=== PATIENT | male | born 1970 | race Caucasian/White ===

== ENCOUNTER 2022-02-21 09:01 | Inpatient (IN) | payer MEDICAID, MEDICARE ==
[~2022-02-21] VITALS: Ht 170.2 cm; Wt 83.0 kg
[2022-02-21] MEDS ORDERED: ONDANSETRON HCL 4MG/2ML INJ IV STA (09:14)
[2022-02-21 09:46] LABS: CHLORIDE 100 mEq/L (98-107)
[2022-02-21 09:53] LABS: BASOPHILS % 0.6 % (0.0-2.0); EOSINOPHILS % 0.2 % (0.0-5.0); HEMATOCRIT. 45.8 % (42.0-52.0); HEMOGLOBIN. 15.4 g/dL (14.0-18.0); LYMPHOCYTES % 15.1 % (20.0-50.0); MEAN CORPUSCULAR HEMOGLOBIN 29.4 pg (28.0-32.0); MEAN CORPUSCULAR VOLUME 87.5 fL (80.0-94.0); MEAN PLATELET VOLUME 8.6 fl (7.4-10.4); MONOCYTES % 9.8 % (2.0-8.0); NEUTROPHILS % 74.3 % (40.0-76.0); PLATELET 304 x1000/uL (130-400); RED BLOOD CELL COUNT 5.23 mill/uL (4.7-6.1); RED CELL DISTRIBUTION WIDTH 13.1 % (11.6-14.6)
[2022-02-21 09:57] LABS: CLARITY URINE CLOUDY (CLEAR); COLOR URINE DARK YELLOW (YELLOW); KETONES URINE 4+ (NEGATIVE); LEUKOCYTE ESTERASE URINE TRACE (NEGATIVE); NITRITE URINE NEGATIVE (NEGATIVE); OCCULT BLOOD URINE NEGATIVE (NEGATIVE); PROTEIN URINE 1+ (NEGATIVE); SPECIFIC GRAVITY URINE 1.023 (1.005-1.030); UROBILINOGEN URINE 0.2 E.U./dL (0.2-1.0)
[2022-02-21] MEDS ORDERED: CEFOXITIN SODIUM 2 G in DEXT 5% WATER 100 ML IV STA (10:54)
[2022-02-21] MEDS ORDERED: BUPIVACAINE HCL/PF 0.5% (5MG/ML) 10ML ONE (11:49)
[2022-02-21] MEDS ORDERED: SKIN ADHESIVE 0.7 GM EA TOP ONE (11:49)
[2022-02-21] MEDS ORDERED: PROPOFOL 200MG/20ML VIAL IV ONE (12:26)
[2022-02-21] MEDS ORDERED: MIDAZOLAM HCL 2 MG/2 ML VIAL ONE (12:55)
[2022-02-21] MEDS ORDERED: ROCURONIUM BROMIDE 10MG/ML VIAL 5ML IV ONE (12:56)
[2022-02-21] MEDS ORDERED: FENTANYL CITRATE/PF 50MCG/ML 2ML VIAL ONE (13:07)
[2022-02-21] MEDS ORDERED: CEFAZOLIN SODIUM 1000MG/VIAL ONE (13:08)
[2022-02-21] MEDS ORDERED: DEXAMETHASONE 4MG/ML 1ML VIAL ONE (13:08)
[2022-02-21] MEDS ORDERED: SUCCINYLCHOLINE CHLORIDE 200MG/10ML IV ONE (13:08)
[2022-02-21] MEDS ORDERED: NALOXONE HCL 0.4MG/ML VIAL IV PRN (13:30)
[2022-02-21] MEDS ORDERED: KETOROLAC 30MG/ML VIAL ONE (13:41)
[2022-02-21] MEDS ORDERED: MEPERIDINE HCL/PF 25MG/ML CPJ IV PRN (13:45)
[2022-02-21] MEDS ORDERED: FENTANYL CITRATE/PF 50MCG/ML 2ML VIAL IV PRN (13:45)
[2022-02-21] MEDS ORDERED: ATROPINE SULFATE 0.4MG/ML VIAL IV PRN (13:45)
[2022-02-21] MEDS ORDERED: HYDROMORPHONE HCL/PF 2MG/ML CPJ IV PRN (13:45)
[2022-02-21 13:48] LABS: INR 1.1; PROTHROMBIN TIME 11.6 sec (9.6-11.0)
[2022-02-21] MEDS ORDERED: GLYCOPYRROLATE 0.2MG/ML VIAL 5ML IV PRN (14:30)
[2022-02-21] MEDS ORDERED: METOCLOPRAMIDE HCL 10MG/2ML VIAL IV SCH (14:45)
[2022-02-21 20:00] VITALS: BP 100/66
[2022-02-21 20:14] VITALS: BP 103/55
[2022-02-21] MEDS: MORPHINE SULFATE 4 MG/ML CPJ (NOT FOR IM USE) IV PRN (20:29)
[2022-02-21] MEDS: FAMOTIDINE 20MG/2ML VIAL IV SCH (21:03)
[2022-02-21] MEDS: DEXT 5%/0.45% NACL KCL 20MEQ/L 1,000 ML IV SCH (21:13)
[2022-02-22] VITALS: BP 113/67
[2022-02-22] MEDS: MORPHINE SULFATE 4 MG/ML CPJ (NOT FOR IM USE) IV PRN ×3 (00:41→14:52)
[2022-02-22 04:00] VITALS: BP 101/64
[2022-02-22] MEDS: DEXT 5%/0.45% NACL KCL 20MEQ/L 1,000 ML IV SCH ×2 (06:47→20:01)
[2022-02-22 08:00] VITALS: BP 117/75
[2022-02-22] MEDS: FAMOTIDINE 20MG/2ML VIAL IV SCH ×2 (08:54→20:36)
[2022-02-22 12:00] VITALS: BP 111/68
[2022-02-22] MEDS ORDERED: DEXTROSE 50% WATER 50ML SYRINGE IV PRN (14:00)
[2022-02-22] MEDS ORDERED: POTASSIUM CHLORIDE INJ 40 MEQ in DEXT 5% WATER 250 ML IV ONE (14:00)
[2022-02-22] MEDS ORDERED: KCL 20MEQ/100ML X 2 FOR TOTAL KCL 40MEQ/200ML IV SCH (15:00)
[2022-02-22 16:00] VITALS: BP 106/68
[2022-02-22] MEDS: BLOOD SUGAR DIAGNOSTIC STRIP TEST SCH ×2 (17:20→20:43)
[2022-02-22] MEDS: KCL 20MEQ/100ML X 2 FOR TOTAL KCL 40MEQ/200ML IV SCH ×2 (18:17→21:10)
[2022-02-22] MEDS: INSULIN LISPRO 100 UNITS/ML SUBCUT SCH ×2 (18:30→20:35)
[2022-02-22 20:00] VITALS: BP 123/77
[2022-02-22] MEDS: PIPERACILLIN/TAZOBACTAM 3.375 G in DEXTROSE 5% WATER 50 ML IV SCH (23:35)
[2022-02-23] VITALS: BP 107/72
[2022-02-23 04:00] VITALS: BP 116/78
[2022-02-23] MEDS: MORPHINE SULFATE 4 MG/ML CPJ (NOT FOR IM USE) IV PRN (05:07)
[2022-02-23] MEDS: PIPERACILLIN/TAZOBACTAM 3.375 G in DEXTROSE 5% WATER 50 ML IV SCH ×3 (06:42→22:57)
[2022-02-23] MEDS: DEXT 5%/0.45% NACL KCL 20MEQ/L 1,000 ML IV SCH (06:42)
[2022-02-23] MEDS: BLOOD SUGAR DIAGNOSTIC STRIP TEST SCH ×4 (06:42→21:28)
[2022-02-23 08:00] VITALS: BP 115/79
[2022-02-23 08:29] LABS: BASOPHILS % 0.3 % (0.0-2.0); EOSINOPHILS % 0.4 % (0.0-5.0); HEMATOCRIT. 38.2 % (42.0-52.0); LYMPHOCYTES % 20.4 % (20.0-50.0); MEAN CORPUSCULAR HEMOGLOBIN 29.7 pg (28.0-32.0); MEAN CORPUSCULAR VOLUME 87.5 fL (80.0-94.0); MEAN PLATELET VOLUME 8.6 fl (7.4-10.4); MONOCYTES % 11.1 % (2.0-8.0); NEUTROPHILS % 67.8 % (40.0-76.0); PLATELET 256 x1000/uL (130-400); RED BLOOD CELL COUNT 4.37 mill/uL (4.7-6.1)
[2022-02-23] MEDS: FAMOTIDINE 20MG/2ML VIAL IV SCH ×2 (09:58→21:35)
[2022-02-23] MEDS: MORPHINE SULFATE 2 MG/ML CPJ (NOT FOR IM USE) IV PRN ×4 (09:59→22:56)
[2022-02-23] MEDS: INSULIN LISPRO 100 UNITS/ML SUBCUT SCH ×4 (10:14→21:00)
[2022-02-23 12:00] VITALS: BP 114/78
[2022-02-23 16:00] VITALS: BP 113/81
[2022-02-23 20:00] VITALS: BP 104/61
[2022-02-24] VITALS: BP 98/52
[2022-02-24] MEDS: DEXT 5%/0.45% NACL KCL 20MEQ/L 1,000 ML IV SCH ×2 (02:00→12:06)
[2022-02-24] MEDS: MORPHINE SULFATE 2 MG/ML CPJ (NOT FOR IM USE) IV PRN (03:49)
[2022-02-24 04:00] VITALS: BP 103/55
[2022-02-24] MEDS: PIPERACILLIN/TAZOBACTAM 3.375 G in DEXTROSE 5% WATER 50 ML IV SCH ×3 (05:24→21:57)
[2022-02-24] MEDS: BLOOD SUGAR DIAGNOSTIC STRIP TEST SCH ×4 (07:29→22:19)
[2022-02-24 07:30] LABS: BASOPHILS % 0.6 % (0.0-2.0); EOSINOPHILS % 2.4 % (0.0-5.0); HEMATOCRIT. 38.1 % (42.0-52.0); HEMOGLOBIN. 12.8 g/dL (14.0-18.0); LYMPHOCYTES % 26.5 % (20.0-50.0); MEAN CORPUSCULAR HEMOGLOBIN 29.5 pg (28.0-32.0); MEAN CORPUSCULAR VOLUME 87.9 fL (80.0-94.0); MEAN PLATELET VOLUME 7.9 fl (7.4-10.4); MONOCYTES % 11.1 % (2.0-8.0); NEUTROPHILS % 59.4 % (40.0-76.0); PLATELET 282 x1000/uL (130-400); RED BLOOD CELL COUNT 4.33 mill/uL (4.7-6.1)
[2022-02-24 08:00] VITALS: BP 128/83
[2022-02-24] MEDS: INSULIN LISPRO 100 UNITS/ML SUBCUT SCH ×4 (08:52→22:19)
[2022-02-24] MEDS: FAMOTIDINE 20MG/2ML VIAL IV SCH ×2 (11:50→21:57)
[2022-02-24 12:00] VITALS: BP 113/76
[2022-02-24 16:00] VITALS: BP 110/72
[2022-02-24] MEDS: ACETAMINOPHEN 325MG TABLET PO PRN (18:43)
[2022-02-24 20:00] VITALS: BP 121/72
[2022-02-24 21:09] LABS: CHLORIDE 104 mEq/L (98-107)
[2022-02-25] VITALS: BP 114/78
[2022-02-25] MEDS: DEXT 5%/0.45% NACL KCL 20MEQ/L 1,000 ML IV SCH ×3 (00:58→18:16)
[2022-02-25 04:00] VITALS: BP 119/83
[2022-02-25] MEDS: MORPHINE SULFATE 2 MG/ML CPJ (NOT FOR IM USE) IV PRN (04:17)
[2022-02-25] MEDS: PIPERACILLIN/TAZOBACTAM 3.375 G in DEXTROSE 5% WATER 50 ML IV SCH ×3 (07:01→21:01)
[2022-02-25] MEDS: BLOOD SUGAR DIAGNOSTIC STRIP TEST SCH ×4 (07:03→20:17)
[2022-02-25 08:00] VITALS: BP 119/81
[2022-02-25 08:46] LABS: BASOPHILS % 0.4 % (0.0-2.0); EOSINOPHILS % 3.5 % (0.0-5.0); HEMOGLOBIN. 13.8 g/dL (14.0-18.0); LYMPHOCYTES % 24.3 % (20.0-50.0); MEAN CORPUSCULAR HEMOGLOBIN 29.4 pg (28.0-32.0); MEAN CORPUSCULAR VOLUME 89.2 fL (80.0-94.0); MONOCYTES % 9.8 % (2.0-8.0); PLATELET 324 x1000/uL (130-400); RED CELL DISTRIBUTION WIDTH 12.8 % (11.6-14.6)
[2022-02-25] MEDS: FAMOTIDINE 20MG/2ML VIAL IV SCH ×2 (08:58→20:18)
[2022-02-25] MEDS: INSULIN LISPRO 100 UNITS/ML SUBCUT SCH ×4 (09:12→20:20)
[2022-02-25 12:00] VITALS: BP 126/77
[2022-02-25] MEDS: HYDROCODONE/ACETAMINOPHEN 5/325MG TABLET PO PRN ×2 (12:15→17:42)
[2022-02-25 16:00] VITALS: BP 126/83
[2022-02-25 20:00] VITALS: BP 120/64
[2022-02-25] MEDS: MORPHINE SULFATE 4 MG/ML CPJ (NOT FOR IM USE) IV PRN (20:25)
[2022-02-26 04:00] VITALS: BP 105/65
[2022-02-26] MEDS: BLOOD SUGAR DIAGNOSTIC STRIP TEST SCH ×4 (05:25→21:06)
[2022-02-26] MEDS: DEXT 5%/0.45% NACL KCL 20MEQ/L 1,000 ML IV SCH ×2 (05:25→15:08)
[2022-02-26] MEDS: PIPERACILLIN/TAZOBACTAM 3.375 G in DEXTROSE 5% WATER 50 ML IV SCH ×3 (05:25→21:58)
[2022-02-26] MEDS: MORPHINE SULFATE 4 MG/ML CPJ (NOT FOR IM USE) IV PRN (05:26)
[2022-02-26] MEDS: INSULIN LISPRO 100 UNITS/ML SUBCUT SCH ×4 (07:50→21:00)
[2022-02-26 08:00] VITALS: BP 110/76
[2022-02-26] MEDS: FAMOTIDINE 20MG/2ML VIAL IV SCH ×2 (08:44→20:49)
[2022-02-26 12:00] VITALS: BP 113/78
[2022-02-26] MEDS: HYDROCODONE/ACETAMINOPHEN 5/325MG TABLET PO PRN (14:27)
[2022-02-26 16:00] VITALS: BP 106/76
[2022-02-26 20:00] VITALS: BP 123/74
[2022-02-26] MEDS: MORPHINE SULFATE 2 MG/ML CPJ (NOT FOR IM USE) IV PRN (20:58)
[2022-02-27] VITALS: BP 105/69
[2022-02-27] MEDS: DEXT 5%/0.45% NACL KCL 20MEQ/L 1,000 ML IV SCH ×3 (00:36→21:04)
[2022-02-27 04:00] VITALS: BP 112/76
[2022-02-27] MEDS: PIPERACILLIN/TAZOBACTAM 3.375 G in DEXTROSE 5% WATER 50 ML IV SCH ×2 (06:11→16:27)
[2022-02-27] MEDS: BLOOD SUGAR DIAGNOSTIC STRIP TEST SCH ×4 (06:16→21:27)
[2022-02-27] MEDS: MORPHINE SULFATE 2 MG/ML CPJ (NOT FOR IM USE) IV PRN (06:30)
[2022-02-27] MEDS: INSULIN LISPRO 100 UNITS/ML SUBCUT SCH ×2 (07:50→21:00)
[2022-02-27 08:00] VITALS: BP 112/76
[2022-02-27] MEDS: FAMOTIDINE 20MG/2ML VIAL IV SCH ×2 (10:21→21:27)
[2022-02-27] MEDS: HYDROCODONE/ACETAMINOPHEN 5/325MG TABLET PO PRN ×2 (10:51→21:14)
[2022-02-27 12:00] VITALS: BP 110/76
[2022-02-27 16:00] VITALS: BP 112/76
[2022-02-27 16:43] LABS: BASOPHILS % 0.5 % (0.0-2.0); EOSINOPHILS % 2.2 % (0.0-5.0); HEMATOCRIT. 39.5 % (42.0-52.0); HEMOGLOBIN. 13.3 g/dL (14.0-18.0); LYMPHOCYTES % 28.2 % (20.0-50.0); MEAN CORPUSCULAR HEMOGLOBIN 29.5 pg (28.0-32.0); MEAN CORPUSCULAR VOLUME 87.8 fL (80.0-94.0); MONOCYTES % 11.4 % (2.0-8.0); NEUTROPHILS % 57.7 % (40.0-76.0); PLATELET 349 x1000/uL (130-400)
[2022-02-27 20:00] VITALS: BP 129/75
[2022-02-28] VITALS: BP 113/70
[2022-02-28 04:00] VITALS: BP 116/82
[2022-02-28] MEDS: DEXT 5%/0.45% NACL KCL 20MEQ/L 1,000 ML IV SCH ×2 (06:33→15:50)
[2022-02-28] MEDS: BLOOD SUGAR DIAGNOSTIC STRIP TEST SCH ×4 (07:30→20:15)
[2022-02-28 08:00] VITALS: BP 120/74
[2022-02-28] MEDS: FAMOTIDINE 20MG/2ML VIAL IV SCH ×2 (09:31→19:57)
[2022-02-28] MEDS: INSULIN LISPRO 100 UNITS/ML SUBCUT SCH ×4 (09:43→20:13)
[2022-02-28] MEDS ORDERED: HYDR-4001 MT ×2 (10:17)
[2022-02-28] MEDS ORDERED: LEVO500T90 MT ×2 (10:17)
[2022-02-28] MEDS: HYDROCODONE/ACETAMINOPHEN 5/325MG TABLET PO PRN ×3 (11:00→19:57)
[2022-02-28 12:00] VITALS: BP_SYST 112; BP_SYST 115; BP_DIAS 77; BP_DIAS 79
[2022-02-28 16:00] VITALS: BP 112/77
[2022-02-28 20:00] VITALS: BP 130/83
[2022-03-01] VITALS: BP 107/68
[2022-03-01] MEDS: HYDROCODONE/ACETAMINOPHEN 5/325MG TABLET PO PRN ×5 (00:49→23:15)
[2022-03-01] MEDS: DEXT 5%/0.45% NACL KCL 20MEQ/L 1,000 ML IV SCH ×3 (01:52→20:25)
[2022-03-01 04:00] VITALS: BP 124/64
[2022-03-01] MEDS: BLOOD SUGAR DIAGNOSTIC STRIP TEST SCH ×3 (06:11→20:21)
[2022-03-01 06:41] LABS: BASOPHILS % 0.1 % (0.0-2.0); HEMATOCRIT. 42.8 % (42.0-52.0); HEMOGLOBIN. 14.2 g/dL (14.0-18.0); LYMPHOCYTES % 10.8 % (20.0-50.0); MEAN CORPUSCULAR HEMOGLOBIN 29.6 pg (28.0-32.0); MEAN CORPUSCULAR VOLUME 89.3 fL (80.0-94.0); MEAN PLATELET VOLUME 7.7 fl (7.4-10.4); MONOCYTES % 5.3 % (2.0-8.0); NEUTROPHILS % 83.8 % (40.0-76.0); PLATELET 360 x1000/uL (130-400); RED CELL DISTRIBUTION WIDTH 13.2 % (11.6-14.6)
[2022-03-01 08:00] VITALS: BP 105/66
[2022-03-01] MEDS: FAMOTIDINE 20MG/2ML VIAL IV SCH ×2 (09:00→20:21)
[2022-03-01] MEDS ORDERED: MORPHINE SULFATE 2 MG/ML CPJ (NOT FOR IM USE) IV SCH (11:00)
[2022-03-01 12:00] VITALS: BP 109/67
[2022-03-01] MEDS: INSULIN LISPRO 100 UNITS/ML SUBCUT SCH ×3 (12:50→20:23)
[2022-03-01] MEDS: PIPERACILLIN/TAZOBACTAM 3.375 G in DEXTROSE 5% WATER 50 ML IV SCH ×3 (13:32→23:10)
[2022-03-01 16:00] VITALS: BP 125/79
[2022-03-01 20:00] VITALS: BP 100/65
[2022-03-02] VITALS: BP 122/74
[2022-03-02] MEDS: HYDROCODONE/ACETAMINOPHEN 5/325MG TABLET PO PRN (03:26)
[2022-03-02 04:00] VITALS: BP 124/71
[2022-03-02] MEDS: PIPERACILLIN/TAZOBACTAM 3.375 G in DEXTROSE 5% WATER 50 ML IV SCH ×2 (05:30→14:36)
[2022-03-02] MEDS: ACETAMINOPHEN 325MG TABLET PO PRN ×2 (05:32→09:17)
[2022-03-02] MEDS: HYDROCODONE/ACETAMINOPHEN 10/325MG TABLET PO PRN (06:43)
[2022-03-02] MEDS: BLOOD SUGAR DIAGNOSTIC STRIP TEST SCH ×4 (07:20→21:00)
[2022-03-02 08:00] VITALS: BP 106/69
[2022-03-02] MEDS: DEXT 5%/0.45% NACL KCL 20MEQ/L 1,000 ML IV SCH ×2 (09:10→18:19)
[2022-03-02] MEDS: FAMOTIDINE 20MG/2ML VIAL IV SCH ×2 (09:19→22:58)
[2022-03-02] MEDS: INSULIN LISPRO 100 UNITS/ML SUBCUT SCH ×4 (09:36→21:00)
[2022-03-02 12:00] VITALS: BP 104/70
[2022-03-02] MEDS ORDERED: MORPHINE SULFATE 2 MG/ML CPJ (NOT FOR IM USE) IV NR (13:30)
[2022-03-02] MEDS ORDERED: DIATR MEGLU/DIATRIZOATE SOLN 30ML ONE (14:30)
[2022-03-02] MEDS ORDERED: DIATR MEGLU/DIATRIZOATE SOLN 120ML ONE (14:31)
[2022-03-02 16:00] VITALS: BP 112/73
[2022-03-02 20:00] VITALS: BP 121/72
[2022-03-02 20:40] LABS: BASOPHILS % 0.6 % (0.0-2.0); EOSINOPHILS % 3.6 % (0.0-5.0); HEMATOCRIT. 42.5 % (42.0-52.0); HEMOGLOBIN. 14.2 g/dL (14.0-18.0); MEAN CORPUSCULAR HEMOGLOBIN 29.8 pg (28.0-32.0); MEAN CORPUSCULAR VOLUME 88.7 fL (80.0-94.0); MEAN PLATELET VOLUME 7.6 fl (7.4-10.4); MONOCYTES % 9.8 % (2.0-8.0); PLATELET 351 x1000/uL (130-400); RED BLOOD CELL COUNT 4.79 mill/uL (4.7-6.1); RED CELL DISTRIBUTION WIDTH 13.2 % (11.6-14.6)
[2022-03-02 20:49] LABS: CHLORIDE 105 mEq/L (98-107)
[2022-03-02] MEDS: MORPHINE SULFATE 4 MG/ML CPJ (NOT FOR IM USE) IV PRN (22:49)
[2022-03-03] VITALS: BP 98/62
[2022-03-03] MEDS: PIPERACILLIN/TAZOBACTAM 3.375 G in DEXTROSE 5% WATER 50 ML IV SCH ×4 (00:35→22:06)
[2022-03-03] MEDS: HYDROCODONE/ACETAMINOPHEN 10/325MG TABLET PO PRN ×3 (02:22→16:57)
[2022-03-03 04:00] VITALS: BP 110/71
[2022-03-03] MEDS: DEXT 5%/0.45% NACL KCL 20MEQ/L 1,000 ML IV SCH ×2 (07:18→14:00)
[2022-03-03] MEDS: BLOOD SUGAR DIAGNOSTIC STRIP TEST SCH ×4 (07:18→20:08)
[2022-03-03 08:45] VITALS: BP 109/68
[2022-03-03] MEDS: MORPHINE SULFATE 4 MG/ML CPJ (NOT FOR IM USE) IV PRN ×2 (08:56→17:38)
[2022-03-03] MEDS: INSULIN LISPRO 100 UNITS/ML SUBCUT SCH ×4 (08:57→20:09)
[2022-03-03] MEDS: FAMOTIDINE 20MG/2ML VIAL IV SCH ×2 (09:04→20:02)
[2022-03-03 12:00] VITALS: BP 108/67
[2022-03-03 16:00] VITALS: BP 116/78
[2022-03-03 20:00] VITALS: BP 117/78
[2022-03-04] VITALS: BP 118/78
[2022-03-04] MEDS: MORPHINE SULFATE 4 MG/ML CPJ (NOT FOR IM USE) IV PRN ×2 (01:44→13:09)
[2022-03-04 04:00] VITALS: BP 103/70
[2022-03-04] MEDS: PIPERACILLIN/TAZOBACTAM 3.375 G in DEXTROSE 5% WATER 50 ML IV SCH ×3 (05:05→20:20)
[2022-03-04] MEDS: BLOOD SUGAR DIAGNOSTIC STRIP TEST SCH ×3 (06:37→20:10)
[2022-03-04] MEDS: HYDROCODONE/ACETAMINOPHEN 10/325MG TABLET PO PRN ×3 (06:38→22:37)
[2022-03-04] MEDS: INSULIN LISPRO 100 UNITS/ML SUBCUT SCH ×3 (07:50→20:19)
[2022-03-04 12:00] VITALS: BP 105/70
[2022-03-04] MEDS: FAMOTIDINE 20MG/2ML VIAL IV SCH ×2 (13:09→20:10)
[2022-03-04] MEDS: DEXT 5%/0.45% NACL KCL 20MEQ/L 1,000 ML IV SCH ×3 (14:48→20:13)
[2022-03-04 16:00] VITALS: BP 95/55
[2022-03-04 20:00] VITALS: BP 122/73
[2022-03-05] VITALS: BP 115/73
[2022-03-05 04:00] VITALS: BP 116/65
[2022-03-05] MEDS: PIPERACILLIN/TAZOBACTAM 3.375 G in DEXTROSE 5% WATER 50 ML IV SCH ×3 (05:16→22:14)
[2022-03-05] MEDS: BLOOD SUGAR DIAGNOSTIC STRIP TEST SCH ×4 (07:46→21:00)
[2022-03-05] MEDS: INSULIN LISPRO 100 UNITS/ML SUBCUT SCH ×4 (07:47→22:06)
[2022-03-05 08:00] VITALS: BP 100/65
[2022-03-05] MEDS: FAMOTIDINE 20MG/2ML VIAL IV SCH ×2 (08:47→22:05)
[2022-03-05] MEDS: HYDROCODONE/ACETAMINOPHEN 10/325MG TABLET PO PRN ×2 (08:48→20:29)
[2022-03-05 12:00] VITALS: BP 108/48
[2022-03-05] MEDS: DEXT 5%/0.45% NACL KCL 20MEQ/L 1,000 ML IV SCH (14:14)
[2022-03-05 16:00] VITALS: BP 94/48
[2022-03-05] MEDS: ONDANSETRON HCL 4MG/2ML INJ IV PRN ×3 (17:08→20:25)
[2022-03-05] MEDS: MORPHINE SULFATE 4 MG/ML CPJ (NOT FOR IM USE) IV PRN (18:52)
[2022-03-05 20:00] VITALS: BP 113/67
[2022-03-06] MEDS: MORPHINE SULFATE 4 MG/ML CPJ (NOT FOR IM USE) IV PRN ×3 (00:09→21:23)
[2022-03-06] MEDS: DEXT 5%/0.45% NACL KCL 20MEQ/L 1,000 ML IV SCH ×3 (00:09→20:33)
[2022-03-06 01:08] VITALS: BP 102/50
[2022-03-06] MEDS: BLOOD SUGAR DIAGNOSTIC STRIP TEST SCH ×4 (05:32→20:34)
[2022-03-06] MEDS: PIPERACILLIN/TAZOBACTAM 3.375 G in DEXTROSE 5% WATER 50 ML IV SCH ×3 (05:32→20:34)
[2022-03-06] MEDS: INSULIN LISPRO 100 UNITS/ML SUBCUT SCH ×4 (07:50→21:00)
[2022-03-06 08:00] VITALS: BP 91/49
[2022-03-06] MEDS: FAMOTIDINE 20MG/2ML VIAL IV SCH ×2 (09:38→20:33)
[2022-03-06 12:00] VITALS: BP 99/60
[2022-03-06 16:09] VITALS: BP 102/57
[2022-03-06 16:09] LABS: BASOPHILS % 0.5 % (0.0-2.0); EOSINOPHILS % 2.2 % (0.0-5.0); HEMATOCRIT. 37.6 % (42.0-52.0); HEMOGLOBIN. 12.5 g/dL (14.0-18.0); LYMPHOCYTES % 25.8 % (20.0-50.0); MEAN CORPUSCULAR HEMOGLOBIN 29.3 pg (28.0-32.0); MEAN CORPUSCULAR VOLUME 88.2 fL (80.0-94.0); MEAN PLATELET VOLUME 7.6 fl (7.4-10.4); MONOCYTES % 11.8 % (2.0-8.0); NEUTROPHILS % 59.7 % (40.0-76.0); PLATELET 298 x1000/uL (130-400); RED BLOOD CELL COUNT 4.26 mill/uL (4.7-6.1); RED CELL DISTRIBUTION WIDTH 13.3 % (11.6-14.6)
[2022-03-06 16:14] LABS: CHLORIDE 107 mEq/L (98-107)
[2022-03-06 20:00] VITALS: BP 112/73
[2022-03-07] VITALS: BP 97/58
[2022-03-07 04:00] VITALS: BP 103/69
[2022-03-07] MEDS: MORPHINE SULFATE 4 MG/ML CPJ (NOT FOR IM USE) IV PRN (05:33)
[2022-03-07] MEDS: INSULIN LISPRO 100 UNITS/ML SUBCUT SCH ×4 (07:50→21:00)
[2022-03-07] MEDS: BLOOD SUGAR DIAGNOSTIC STRIP TEST SCH ×4 (07:53→21:24)
[2022-03-07 08:00] VITALS: BP 104/68
[2022-03-07] MEDS: FAMOTIDINE 20MG/2ML VIAL IV SCH ×2 (08:13→21:23)
[2022-03-07] MEDS: DEXT 5%/0.45% NACL KCL 20MEQ/L 1,000 ML IV SCH ×3 (08:13→21:24)
[2022-03-07 12:00] VITALS: BP 106/58
[2022-03-07 16:00] VITALS: BP 106/66
[2022-03-07] MEDS ORDERED: MORPHINE SULFATE 2 MG/ML CPJ (NOT FOR IM USE) IV NR ×2 (16:30→23:45)
[2022-03-08] VITALS: BP 116/77
[2022-03-08 04:00] VITALS: BP 113/81
[2022-03-08] MEDS: INSULIN LISPRO 100 UNITS/ML SUBCUT SCH ×4 (07:50→21:00)
[2022-03-08] MEDS: BLOOD SUGAR DIAGNOSTIC STRIP TEST SCH ×4 (07:56→20:34)
[2022-03-08 08:00] VITALS: BP 113/73
[2022-03-08] MEDS: FAMOTIDINE 20MG/2ML VIAL IV SCH ×2 (09:57→20:34)
[2022-03-08] MEDS: DEXT 5%/0.45% NACL KCL 20MEQ/L 1,000 ML IV SCH (10:05)
[2022-03-08 12:00] VITALS: BP 116/75
[2022-03-08] MEDS ORDERED: NALOXONE HCL 0.4MG/ML VIAL IV PRN (13:00)
[2022-03-08] MEDS: ONDANSETRON HCL 4MG/2ML INJ IV PRN ×2 (13:07→17:49)
[2022-03-08] MEDS: MORPHINE SULFATE 2 MG/ML CPJ (NOT FOR IM USE) IV PRN ×2 (13:09→17:49)
[2022-03-08 16:00] VITALS: BP 110/76
[2022-03-09] VITALS: BP 109/61
[2022-03-09] MEDS: DEXT 5%/0.45% NACL KCL 20MEQ/L 1,000 ML IV SCH ×3 (00:45→20:33)
[2022-03-09] MEDS: MORPHINE SULFATE 2 MG/ML CPJ (NOT FOR IM USE) IV PRN (01:03)
[2022-03-09 04:00] VITALS: BP 108/62
[2022-03-09 07:23] LABS: BASOPHILS % 0.8 % (0.0-2.0); EOSINOPHILS % 1.7 % (0.0-5.0); HEMATOCRIT. 39.1 % (42.0-52.0); HEMOGLOBIN. 12.7 g/dL (14.0-18.0); LYMPHOCYTES % 30.2 % (20.0-50.0); MEAN CORPUSCULAR HEMOGLOBIN 29.2 pg (28.0-32.0); MEAN CORPUSCULAR VOLUME 89.6 fL (80.0-94.0); MEAN PLATELET VOLUME 7.6 fl (7.4-10.4); NEUTROPHILS % 54.3 % (40.0-76.0); PLATELET 299 x1000/uL (130-400); RED BLOOD CELL COUNT 4.36 mill/uL (4.7-6.1); RED CELL DISTRIBUTION WIDTH 13.7 % (11.6-14.6)
[2022-03-09] MEDS: BLOOD SUGAR DIAGNOSTIC STRIP TEST SCH ×4 (07:48→21:00)
[2022-03-09] MEDS: INSULIN LISPRO 100 UNITS/ML SUBCUT SCH ×4 (07:50→21:13)
[2022-03-09 08:00] VITALS: BP 90/60
[2022-03-09] MEDS: FAMOTIDINE 20MG/2ML VIAL IV SCH (08:49)
[2022-03-09] MEDS: HYDROCODONE/ACETAMINOPHEN 5/325MG TABLET PO PRN ×3 (09:51→20:56)
[2022-03-09] MEDS ORDERED: BISACODYL 10MG SUPP PR NR (11:30)
[2022-03-09 12:00] VITALS: BP 80/51
[2022-03-09 16:00] VITALS: BP 102/64
[2022-03-09 20:00] VITALS: BP 97/61
[2022-03-09] MEDS: FAMOTIDINE 20MG TABLET PO SCH (20:34)
[2022-03-10] VITALS: BP 136/80
[2022-03-10] MEDS: MORPHINE SULFATE 2 MG/ML CPJ (NOT FOR IM USE) IV PRN ×2 (00:50→06:59)
[2022-03-10 04:00] VITALS: BP 139/70
[2022-03-10] MEDS: DEXT 5%/0.45% NACL KCL 20MEQ/L 1,000 ML IV SCH ×2 (06:58→16:00)
[2022-03-10] MEDS: BLOOD SUGAR DIAGNOSTIC STRIP TEST SCH ×4 (07:13→20:44)
[2022-03-10] MEDS: INSULIN LISPRO 100 UNITS/ML SUBCUT SCH ×4 (07:50→20:44)
[2022-03-10 08:00] VITALS: BP 105/66
[2022-03-10] MEDS: FAMOTIDINE 20MG TABLET PO SCH ×2 (08:37→20:43)
[2022-03-10 12:00] VITALS: BP 109/69
[2022-03-10 16:00] VITALS: BP 100/59
[2022-03-10] MEDS: HYDROCODONE/ACETAMINOPHEN 5/325MG TABLET PO PRN ×2 (17:27→23:01)
[2022-03-11 00:25] VITALS: BP 146/50
[2022-03-11] MEDS: DEXT 5%/0.45% NACL KCL 20MEQ/L 1,000 ML IV SCH ×2 (02:00→12:00)
[2022-03-11 03:49] VITALS: BP 136/48
[2022-03-11] MEDS: INSULIN LISPRO 100 UNITS/ML SUBCUT SCH ×3 (07:37→20:13)
[2022-03-11] MEDS: BLOOD SUGAR DIAGNOSTIC STRIP TEST SCH ×4 (07:37→20:27)
[2022-03-11 08:00] VITALS: BP 125/86
[2022-03-11] MEDS: FAMOTIDINE 20MG TABLET PO SCH ×2 (09:04→20:13)
[2022-03-11] MEDS: HYDROCODONE/ACETAMINOPHEN 5/325MG TABLET PO PRN ×3 (09:05→20:27)
[2022-03-11 12:00] VITALS: BP 92/58
[2022-03-11 16:00] VITALS: BP 100/55
[2022-03-11 20:00] VITALS: BP 100/62
[2022-03-12] VITALS: BP 103/65
[2022-03-12 04:00] VITALS: BP 115/69
[2022-03-12] MEDS: BLOOD SUGAR DIAGNOSTIC STRIP TEST SCH ×4 (07:20→20:39)
[2022-03-12] MEDS: INSULIN LISPRO 100 UNITS/ML SUBCUT SCH ×3 (07:50→17:04)
[2022-03-12] MEDS: DEXT 5%/0.45% NACL KCL 20MEQ/L 1,000 ML IV SCH (08:00)
[2022-03-12] MEDS: FAMOTIDINE 20MG TABLET PO SCH ×2 (08:38→20:37)
[2022-03-12] MEDS: HYDROCODONE/ACETAMINOPHEN 5/325MG TABLET PO PRN ×3 (10:09→20:38)
[2022-03-12 12:00] VITALS: BP 94/62
[2022-03-12 16:00] VITALS: BP 98/57
[2022-03-12 20:00] VITALS: BP 98/65
[2022-03-13] VITALS: BP 99/67
[2022-03-13 04:00] VITALS: BP 111/75
[2022-03-13] MEDS: INSULIN LISPRO 100 UNITS/ML SUBCUT SCH ×4 (07:47→21:38)
[2022-03-13] MEDS: BLOOD SUGAR DIAGNOSTIC STRIP TEST SCH ×4 (07:48→20:27)
[2022-03-13 08:00] VITALS: BP_SYST 107; BP_SYST 114; BP_SYST 119; BP_DIAS 69; BP_DIAS 76; BP_DIAS 79
[2022-03-13] MEDS: FAMOTIDINE 20MG TABLET PO SCH ×2 (08:46→21:36)
[2022-03-13] MEDS: HYDROCODONE/ACETAMINOPHEN 5/325MG TABLET PO PRN ×3 (08:47→21:47)
[2022-03-13 12:00] VITALS: BP 143/79
[2022-03-13] MEDS ORDERED: FAMO20TA8 PO (12:51)
[2022-03-13] MEDS ORDERED: HYDR-4001 MT (12:51)
[2022-03-13 16:00] VITALS: BP 97/72
[2022-03-13 20:00] VITALS: BP 100/70
[2022-03-14] VITALS: BP 104/66
[2022-03-14 04:00] VITALS: BP 107/70
[2022-03-14] MEDS: HYDROCODONE/ACETAMINOPHEN 5/325MG TABLET PO PRN ×2 (06:43→13:26)
[2022-03-14] MEDS: BLOOD SUGAR DIAGNOSTIC STRIP TEST SCH ×2 (07:20→13:13)
[2022-03-14] MEDS: INSULIN LISPRO 100 UNITS/ML SUBCUT SCH ×2 (07:50→13:24)
[2022-03-14 08:00] VITALS: BP 103/62
[2022-03-14] MEDS: FAMOTIDINE 20MG TABLET PO SCH (09:35)
[2022-03-14 12:00] VITALS: BP 111/75
[2022-03-14 16:00] VITALS: BP 118/78
== END 2022-03-14 16:50 | disposition home or self-care (01) | DRG 229 ==
LOC: ER 09:24 → 6EST 12:27 → EDBEDREQ 12:30 → EDBEDREQTM 12:30 → ENRESERV 17:32 → 6EST 02-22 13:07
PROVIDERS: ADMIT Internal Medicine; ATTEND Internal Medicine
PROC: 0WJG0ZZ Inspection of Peritoneal Cavity, Open Approach (ICD-10-PCS; principal; 2022-02-21)
PROC: 0D9J0ZZ Drainage of Appendix, Open Approach (ICD-10-PCS; 2022-02-21)
DX: K35.80 Unspecified acute appendicitis (principal); E87.1 Hypo-osmolality and hyponatremia; Z20.822 Contact with and (suspected) exposure to COVID-19; E11.9 Type 2 diabetes mellitus without complications; E87.6 Hypokalemia; I10 Essential (primary) hypertension; K91.89 Other postprocedural complications and disorders of digestive system; Z90.81 Acquired absence of spleen
CPT/HCPCS: 36415; 74018; 74176; 80048; 80053; 81003; 82962; 85025; 87426; 93005; 97162; 99291; C1893; C9803; J0330; J0690; J0694; J1100; J1170; J1815; J1885; J2250; J2270; J2405; J2543; J2704; J2765; J3010; J3480; J3490; J7060; Q9963

== ENCOUNTER 2024-01-15 12:48 | Inpatient (IN) | payer SELFPAY ==
[~2024-01-15] VITALS: Ht 177.8 cm; Wt 77.1 kg
[~2024-01-15 12:48] MED LIST: FAMO20TA8 PO; HYDR-4001 MT
[2024-01-15 14:04] LABS: HEMATOCRIT. 47.3 % (42.0-52.0); HEMOGLOBIN. 15.7 g/dL (14.0-18.0); MEAN CORPUSCULAR HEMOGLOBIN 29.4 pg (28.0-32.0); MEAN CORPUSCULAR HGB CONC 33.3 g/dL (31.0-37.0); MEAN CORPUSCULAR VOLUME 88.3 fL (80.0-94.0); MEAN PLATELET VOLUME 8.2 fl (7.4-10.4); PLATELET 315 x1000/uL (130-400); RED BLOOD CELL COUNT 5.36 mill/uL (4.7-6.1); RED CELL DISTRIBUTION WIDTH 13.4 % (11.6-14.6); WHITE BLOOD COUNT 14.9 x1000/uL (4.5-11.0)
[2024-01-15 14:06] LABS: DIFFERENTIAL COMMENT 1
[2024-01-15 14:09] LABS: CARBON DIOXIDE 26 mEq/L (21-32); CHLORIDE 102 mEq/L (98-107); POTASSIUM 4.4 mEq/L (3.5-5.1); SODIUM 137 mEq/L (136-145)
[2024-01-15 14:10] LABS: CALCIUM 10.3 mg/dL (8.7-10.4)
[2024-01-15 14:15] LABS: CREATININE 0.9 mg/dL (0.6-1.3); GLUCOSE 228 mg/dL (70-105); UREA NITROGEN BLOOD 20 mg/dL (9-23)
[2024-01-15 14:16] LABS: ALANINE AMINOTRANSFERASE 31 IU/L (10-49); ASPARTATE AMINOTRANSFERASE 26 IU/L (<34)
[2024-01-15 14:17] LABS: ALBUMIN 4.9 g/dL (3.2-4.8); BILIRUBIN DIRECT 0.2 mg/dL (<=3.0); BILIRUBIN TOTAL 0.6 mg/dL (0.1-1.0); PROTEIN TOTAL 8.8 g/dL (6.0-8.3)
[2024-01-15 14:22] LABS: PARTIAL THROMBOPLASTIN TIME 25.6 sec (23.4-31.0); PROTHROMBIN TIME 10.9 sec (9.6-11.0)
[2024-01-15] MEDS: KETOROLAC 15MG/ML VIAL IV ONE (14:45)
[2024-01-15] MEDS: ONDANSETRON HCL 4MG/2ML INJ IV STA (14:45)
[2024-01-15] MEDS: LACTATED RINGERS 1,000 ML IV SCH (14:46)
[2024-01-15 14:55] LABS: PLATELET ESTIMATE NORMAL
[2024-01-15] MEDS: IOHEXOL-300 100 ML BOTTLE ONE (15:53)
[2024-01-15] MEDS: MORPHINE SULFATE 4 MG/ML INJ (FOR IV/IM USE) IV ONE (16:24)
[2024-01-15] MEDS ORDERED: NITROGLYCERIN 0.4MG TABLET SL SL PRN (19:30)
[2024-01-15] MEDS ORDERED: IPRATROPIUM/ALBUTEROL 0.5-3(2.5)MG/3ML NEB NEB PRN (19:30)
[2024-01-15] MEDS ORDERED: LORAZEPAM 2MG/ML INJ IV PRN (19:30)
[2024-01-15] MEDS ORDERED: ACETAMINOPHEN 650MG SUPP PR PRN ×2 (19:30)
[2024-01-15] MEDS ORDERED: ONDANSETRON HCL 4MG/2ML INJ IV PRN (19:30)
[2024-01-15] MEDS ORDERED: DEXTROSE 50% WATER 50ML SYRINGE IV PRN (19:30)
[2024-01-15 20:00] LABS: IRON 81 ug/dL (65-175)
[2024-01-15 20:03] LABS: TOTAL IRON BINDING CAPACITY 278 ug/dl (250-425)
[2024-01-15 20:06] LABS: FOLIC ACID (FOLATE) SERUM > 20.00 ng/mL (>5.38)
[2024-01-15 20:07] LABS: T4 FREE 1.17 ng/dL (0.89-1.76); VITAMIN B12 SERUM 974 pg/mL (211-911)
[2024-01-15] MEDS ORDERED: HYDRALAZINE 20MG/ML VIAL IV PRN (20:15)
[2024-01-15] MEDS: DEXT 5%/LACTATED RINGERS 1,000 ML IV SCH (21:29)
[2024-01-15] MEDS: BLOOD SUGAR DIAGNOSTIC STRIP TEST SCH (21:30)
[2024-01-15] MEDS: ENOXAPARIN 40MG/0.4ML SYR SUBCUT SCH (21:31)
[2024-01-15] MEDS: INSULIN LISPRO 100 UNITS/ML SUBCUT SCH (21:39)
[2024-01-16] MEDS: NITROGLYCERIN OINT 1GM/INCH UDPKT TD SCH (00:49)
[2024-01-16] MEDS: IOHEXOL-300 100 ML BOTTLE ONE (02:53)
[2024-01-16 07:04] LABS: BASOPHILS % 0.3 % (0.0-2.0); EOSINOPHILS % 0.6 % (0.0-5.0); HEMATOCRIT. 40.9 % (42.0-52.0); HEMOGLOBIN. 13.5 g/dL (14.0-18.0); LYMPHOCYTES % 20.1 % (20.0-50.0); MEAN CORPUSCULAR HEMOGLOBIN 29.2 pg (28.0-32.0); MEAN CORPUSCULAR HGB CONC 32.9 g/dL (31.0-37.0); MEAN CORPUSCULAR VOLUME 88.7 fL (80.0-94.0); MEAN PLATELET VOLUME 8.8 fl (7.4-10.4); PLATELET 281 x1000/uL (130-400); RED BLOOD CELL COUNT 4.61 mill/uL (4.7-6.1); RED CELL DISTRIBUTION WIDTH 13.1 % (11.6-14.6); WHITE BLOOD COUNT 10.5 x1000/uL (4.5-11.0)
[2024-01-16 07:26] LABS: CHLORIDE 107 mEq/L (98-107); POTASSIUM 4.2 mEq/L (3.5-5.1); SODIUM 139 mEq/L (136-145)
[2024-01-16 07:29] LABS: CALCIUM 8.3 mg/dL (8.7-10.4); CARBON DIOXIDE 25 mEq/L (21-32)
[2024-01-16 07:34] LABS: CREATININE 0.7 mg/dL (0.6-1.3); GLUCOSE 184 mg/dL (70-105); UREA NITROGEN BLOOD 13 mg/dL (9-23)
[2024-01-16 07:36] LABS: ALANINE AMINOTRANSFERASE 186 IU/L (10-49); ALBUMIN 3.4 g/dL (3.2-4.8); ASPARTATE AMINOTRANSFERASE 164 IU/L (<34); PHOSPHORUS 3.5 mg/dL (2.5-4.9)
[2024-01-16 07:37] LABS: BILIRUBIN TOTAL 1.3 mg/dL (0.1-1.0); PROTEIN TOTAL 6.2 g/dL (6.0-8.3)
[2024-01-16] MEDS: PANTOPRAZOLE SODIUM 40 MG/VIAL IV SCH (10:18)
[2024-01-16 12:00] VITALS: BP 113/70; PULSE 60; RESP 18; TEMP 98.9
[2024-01-16 13:00] VITALS: BP 113/70; PULSE 60; RESP 18; TEMP 98.9
[2024-01-16 16:00] VITALS: BP 104/60; PULSE 66; RESP 18; TEMP 98.3
[2024-01-16 20:00] VITALS: BP 117/70; PULSE 61; RESP 17; TEMP 98.5
[2024-01-16] MEDS: KETOROLAC 15MG/ML VIAL IV PRN (20:33)
[2024-01-17] VITALS: BP 109/63; PULSE 67; RESP 20; TEMP 97.7
[2024-01-17 04:00] VITALS: BP 129/75; PULSE 65; RESP 20; TEMP 97.8
[2024-01-17 08:00] VITALS: BP 124/83; PULSE 68; RESP 20; TEMP 97.3
[2024-01-17 12:00] VITALS: BP 123/85; PULSE 64; RESP 20; TEMP 97.3
[2024-01-17 14:55] VITALS: BP 124/83; PULSE 64; TEMP 97.3; O2SAT 98
== END 2024-01-17 15:29 | disposition home or self-care (01) | DRG 247 ==
LOC: ER 12:48 → EDBEDREQ 15:15 → EDBEDREQTM 15:15 → 5WST 23:55 → 6WST 01-16 12:18
PROVIDERS: ADMIT Internal Medicine; ATTEND Internal Medicine
PROC: 0D9670Z Drainage of Stomach with Drainage Device, Via Natural or Artificial Opening (ICD-10-PCS; principal; 2024-01-15)
DX: K56.609 Unspecified intestinal obstruction, unspecified as to partial versus complete obstruction (principal); E88.09 Other disorders of plasma-protein metabolism, not elsewhere classified; E11.9 Type 2 diabetes mellitus without complications; I10 Essential (primary) hypertension; E86.0 Dehydration; Z79.4 Long term (current) use of insulin
CPT/HCPCS: 36415; 71045; 74018; 74177; 80048; 80053; 80076; 82607; 82746; 82962; 83036; 83540; 83550; 83735; 84100; 84439; 84443; 85025; 86850; 86900; 93970; 99285; J1650; J1815; J1885; J2270; J2405; J2470; Q9967